=== PATIENT | male | born 1950 | race African-American/Black ===

== ENCOUNTER 2024-11-29 13:22 | Emergency (ER) | payer OTHER, MEDICAID ==
[~2024-11-29] VITALS: Ht 175.3 cm; Wt 77.0 kg
[2024-11-29 14:33] LABS: BASOPHILS % 1.2 % (0.0-2.0); DIFFERENTIAL COMMENT 0; EOSINOPHILS % 5.1 % (0.0-5.0); HEMOGLOBIN. 9.9 g/dL (14.0-18.0); LYMPHOCYTES % 9.5 % (20.0-50.0); MEAN CORPUSCULAR HEMOGLOBIN 35.3 pg (28.0-32.0); MEAN CORPUSCULAR HGB CONC 34.2 g/dL (31.0-37.0); MEAN CORPUSCULAR VOLUME 103.2 fL (80.0-94.0); MEAN PLATELET VOLUME 7.3 fl (7.4-10.4); MONOCYTES % 13.1 % (2.0-8.0); NEUTROPHILS % 71.1 % (40.0-76.0); PLATELET 92 x1000/uL (130-400); RED BLOOD CELL COUNT 2.81 mill/uL (4.7-6.1); RED CELL DISTRIBUTION WIDTH 17.4 % (11.6-14.6); WHITE BLOOD COUNT 4.7 x1000/uL (4.5-11.0)
[2024-11-29 14:40] LABS: CHLORIDE 106 mEq/L (98-107); POTASSIUM 4.3 mEq/L (3.5-5.1); SODIUM 141 mEq/L (136-145)
[2024-11-29 14:41] LABS: CARBON DIOXIDE 25 mEq/L (21-32)
[2024-11-29 14:46] LABS: GLUCOSE 148 mg/dL (70-105); UREA NITROGEN BLOOD 40 mg/dL (9-23)
[2024-11-29 14:47] LABS: TROPONIN I HIGH SENSITIVITY 13 ng/L (3.0-53)
[2024-11-29 14:49] LABS: CREATININE 13.6 mg/dL (0.6-1.3)
[2024-11-29] MEDS: METOPROLOL TARTRATE 50MG TABLET PO ONE (15:04)
[2024-11-29] MEDS: IOHEXOL-350 100 ML BOTTLE ONE (15:11)
[2024-11-29 16:09] LABS: INR 2.2; PROTHROMBIN TIME 23.5 sec (9.6-11.0)
[2024-11-29] MEDS ORDERED: ASPIRIN 81MG TABLET PO ONE (17:15)
[2024-11-29 19:00] VITALS: BP 136/85; PULSE 90; RESP 10; TEMP 37.16964; O2SAT 99
[2024-11-29] MEDS ORDERED: IOHEXOL-350 100 ML BOTTLE ONE (23:35)
== END 2024-11-29 19:12 | disposition short-term general hospital (02) ==
LOC: ER 13:22
DX: I63.9 Cerebral infarction, unspecified (principal); R47.1 Dysarthria and anarthria; I48.91 Unspecified atrial fibrillation; J44.9 Chronic obstructive pulmonary disease, unspecified; E11.22 Type 2 diabetes mellitus with diabetic chronic kidney disease; I13.2 Hypertensive heart and chronic kidney disease with heart failure and with stage 5 chronic kidney disease, or end stage renal disease; I50.9 Heart failure, unspecified; N18.6 End stage renal disease; Z99.2 Dependence on renal dialysis; Z88.0 Allergy status to penicillin; Z98.890 Other specified postprocedural states; Z88.1 Allergy status to other antibiotic agents
CPT/HCPCS: 99291; 71275; 71045; 80048; 85025; 85610; 84484; 36415; 70496; 70498; 70450; 93005; Q9967